=== PATIENT | female | born 1960 | race Caucasian/White ===

== ENCOUNTER 2023-05-22 15:58 | Inpatient (IN) | payer OTHER ==
[~2023-05-22] VITALS: Ht 157.5 cm; Wt 77.1 kg
[2023-05-22] MEDS ORDERED: HYDROCHLOROTHIAZIDE 25 MG TABLET ONE (16:58)
[2023-05-22] MEDS: HYDROCHLOROTHIAZIDE 25 MG TABLET PO ONE (17:01)
[2023-05-22] MEDS ORDERED: ACETAMINOPHEN ES 500 MG TABLET ONE (17:03)
[2023-05-22] MEDS ORDERED: AMLODIPINE BESYLATE 5 MG TABLET ONE (17:04)
[2023-05-22] MEDS: ACETAMINOPHEN ES 500 MG TABLET PO ONE (17:07)
[2023-05-22] MEDS: AMLODIPINE BESYLATE 5 MG TABLET PO ONE (17:07)
[2023-05-22 17:12] LABS: BASOPHILS # (AUTO) 0.2 K/uL (0.0-0.2); EOSINOPHILS # (AUTO) 0.1 K/uL (0.0-0.7); EOSINOPHILS % (AUTO) 0.7 % (0.0-6.0); HEMATOCRIT 42 % (33-45); HEMOGLOBIN 13.8 g/dL (11.5-14.8); LYMPHOCYTES # (AUTO) 1.4 K/uL (0.8-4.8); MEAN CORPUSCULAR HEMOGLOBIN 29 PG (26.0-33.0); MEAN CORPUSCULAR HGB CONC 33 g/dl (31.0-36.0); MEAN CORPUSCULAR VOLUME 88 fL (82-100); MONOCYTES # (AUTO) 0.5 K/uL (0.1-1.30); MONOCYTES % (AUTO) 6.6 % (2.0-12.0); NEUTROPHILS # (AUTO) 5.9 K/uL (1.8-8.9); NEUTROPHILS % (AUTO) 73.7 % (43.0-81.0); PLATELET COUNT (AUTO) 315 K/uL (150-450); RED BLOOD CELL COUNT(AUTO) 4.74 MIL/uL (4.0-5.2); RED CELL DISTRIBUTION WIDTH 13.2 % (11.5-15.0); WHITE BLOOD COUNT (AUTO) 8.1 K/uL (4.3-11.0)
[2023-05-22 17:20] LABS: CALCIUM, SERUM 9.2 mg/dL (8.5-10.1); CARBON DIOXIDE 30 mmol/L (21-32); CHLORIDE 106 mmol/L (98-107); CREATININE 0.7 mg/dL (0.6-1.3); GLUCOSE 108 mg/dL (74-106); SODIUM SERUM 141 mmol/L (136-145); UREA NITROGEN, BLOOD 12 mg/dL (7-18)
[2023-05-22 17:26] LABS: INR 0.99 (0.91-1.10); PROTHROMBIN TIME 10.2 SECS (9.2-11.1)
[2023-05-22 17:33] LABS: NT-PRO BNP 237 pg/mL (0-125)
[2023-05-22] MEDS: ASPIRIN 81 MG TAB.CHEW PO ONE ×2 (21:40)
[2023-05-22] MEDS ORDERED: ACETAMINOPHEN 325 MG TABLET PO PRN (23:30)
[2023-05-22] MEDS ORDERED: ONDANSETRON HCL/PF 4 MG/2 ML VIAL IVP PRN (23:30)
[2023-05-22] MEDS ORDERED: MORPHINE SULFATE INJ 2 MG/ML DISP.SYRIN IV PRN (23:30)
[2023-05-22 23:45] VITALS: BP 162/95; TEMP 97.7; O2SAT 97
[2023-05-22 23:52] VITALS: BP 162/95; TEMP 97.7; O2SAT 97
[2023-05-23] MEDS: ATORVASTATIN 10 MG TABLET PO SCH (00:28)
[2023-05-23] MEDS: ENOXAPARIN SODIUM 40 MG/0.4 ML DISP.SYRIN SQ SCH (00:29)
[2023-05-23 04:00] VITALS: BP 140/76; TEMP 97.8; O2SAT 98
[2023-05-23 07:19] LABS: BASOPHILS % (AUTO) 0.3 % (0.0-2.0); EOSINOPHILS # (AUTO) 0.1 K/uL (0.0-0.7); EOSINOPHILS % (AUTO) 1.8 % (0.0-6.0); HEMATOCRIT 41 % (33-45); HEMOGLOBIN 13.7 g/dL (11.5-14.8); LYMPHOCYTES # (AUTO) 1.8 K/uL (0.8-4.8); LYMPHOCYTES % (AUTO) 28.5 % (20.0-44.0); MEAN CORPUSCULAR HEMOGLOBIN 30 PG (26.0-33.0); MEAN CORPUSCULAR HGB CONC 34 g/dl (31.0-36.0); MEAN CORPUSCULAR VOLUME 89 fL (82-100); MONOCYTES # (AUTO) 0.6 K/uL (0.1-1.30); MONOCYTES % (AUTO) 9.7 % (2.0-12.0); NEUTROPHILS # (AUTO) 3.8 K/uL (1.8-8.9); NEUTROPHILS % (AUTO) 59.7 % (43.0-81.0); PLATELET COUNT (AUTO) 304 K/uL (150-450); RED CELL DISTRIBUTION WIDTH 13.4 % (11.5-15.0); WHITE BLOOD COUNT (AUTO) 6.4 K/uL (4.3-11.0)
[2023-05-23 07:30] VITALS: BP 124/76; TEMP 97.9; O2SAT 98
[2023-05-23 08:24] LABS: CREATININE 0.7 mg/dL (0.6-1.3); MAGNESIUM 2.2 mg/dL (1.8-2.4); PHOSPHORUS 4.7 mg/dL (2.5-4.9); POTASSIUM 3.1 mmol/L (3.5-5.1)
[2023-05-23] MEDS: AMLODIPINE BESYLATE 5 MG TABLET PO SCH (08:48)
[2023-05-23] MEDS: HYDROCHLOROTHIAZIDE 25 MG TABLET PO SCH (08:48)
[2023-05-23] MEDS: METOPROLOL TARTRATE 50 MG TABLET PO SCH (08:48)
[2023-05-23] MEDS: ASPIRIN 81 MG TAB.CHEW PO SCH (08:49)
[2023-05-23] MEDS: POTASSIUM CHLORIDE 20 MEQ TAB.PRT.SR PO SCH (10:05)
[2023-05-23 10:21] LABS: THYROID STIMULATING HORMONE 3.264 uIU/mL (0.358-3.74)
[2023-05-23 11:30] VITALS: BP 119/69; TEMP 99; O2SAT 99
[2023-05-23 16:00] VITALS: BP 133/72; TEMP 98.2; O2SAT 98
[2023-05-23 20:17] VITALS: BP 122/79; TEMP 98.4; O2SAT 96
[2023-05-24 00:16] VITALS: BP 131/70; TEMP 98.6; O2SAT 96
[2023-05-24 04:14] VITALS: BP 123/72; TEMP 97.3; O2SAT 97
[2023-05-24 07:00] VITALS: BP 138/69; TEMP 97.9; O2SAT 96
[2023-05-24 09:15] VITALS: BP 138/69
[2023-05-24] MEDS ORDERED: CHLO25TA2 PO (09:38)
[2023-05-24] MEDS ORDERED: AMLO10TA4 PO (09:38)
[2023-05-24] MEDS ORDERED: METO25TA20 PO (09:38)
[2023-05-24] MEDS: NEOMY SULF/BACITRAC ZN/POLY 15 GM TUBE TP SCH (11:20)
[2023-05-24] MEDS ORDERED: HYDR25TA4 PO (11:32)
[2023-05-24] MEDS ORDERED: AMLO-212 PO (11:32)
[2023-05-24] MEDS ORDERED: METO50TA16 PO (11:32)
== END 2023-05-24 13:00 | disposition home or self-care (01) | DRG 199 ==
LOC: ER 16:24 → TELE 22:42 → MED 05-24 08:43
PROVIDERS: ADMIT Nurse Practitioner Acute Care; ATTEND Nurse Practitioner Family
DX: I16.9 Hypertensive crisis, unspecified (principal); I21.A1 Myocardial infarction type 2; D68.69 Other thrombophilia; E66.01 Morbid (severe) obesity due to excess calories; E87.6 Hypokalemia; I10 Essential (primary) hypertension; Z68.31 Body mass index [BMI] 31.0-31.9, adult; M25.512 Pain in left shoulder; I25.10 Atherosclerotic heart disease of native coronary artery without angina pectoris
CPT/HCPCS: 36415; 71045-TC; 73030-TC; 80048-TC; 80061-TC; 83735-TC; 83880; 84100-TC; 84439-TC; 84443-TC; 84484-TC; 85025-TC; 85730-TC; 93307-TC; 93971-TC; G0378; J1650